=== PATIENT | male | born 1985 | race Caucasian/White ===

== ENCOUNTER 2017-01-06 14:42 | Emergency (ER) | payer MEDICAID ==
[~2017-01-06] VITALS: Ht 170.2 cm; Wt 85.0 kg
[2017-01-06 20:28] VITALS: BP 132/84
[2017-01-06] MEDS ORDERED: BACITRACIN ZINC OINT UDPKT TOP ONE (21:00)
[2017-01-06] MEDS ORDERED: TETANUS, DIPHTHERIA, PERTUSSIS VAC/PF 0.5ML (>7YR OLD) IM ONE (21:00)
== END 2017-01-06 22:34 | disposition home or self-care (01) ==
LOC: ER 20:14
DX: S61.012A Laceration without foreign body of left thumb without damage to nail, initial encounter (principal)
CPT/HCPCS: 90471; 90715; 99283; Z7610